=== PATIENT | female | born 1995 | race Two or more races ===

== ENCOUNTER 2017-07-29 12:40 | Emergency (ER) | payer OTHER ==
[2017-07-29 12:48] VITALS: BP 132/78; PULSE 74; TEMP 98.9; BMI 18.3
--- NOTE | 2017-07-29 12:59 | PDOC ---
History of Present Illness - General Chief Complaint: Back Pain Stated Complaint: RIGHT LOWER BACK PAIN Time Seen by Provider: 07/29/17 12:44 History Source: Patient Exam Limitations: No Limitations - History of Present Illness Initial Comments: 07/29/17 12:54 This patient is an otherwise healthy 21 yo F presenting to the ER with a complaint of lower back pain Pt states she had a gradual onset of right lower back pain which began yesterday No direct trauma to the back, no heavy lifting No fevers or chills No bowel or bladder incontinence No fevers or chills No dysuria, no flank pain per say no history of auto immune conditions No history of IVDU No history of cancer Pt tells me that she was told by her physician that she needs to see a gravity prospecting supervisor due to irregular periods She has not done so because she is not sexually active PMH: denies PSH: denies Meds: denies ALL: NKDA Social: denies alcohol, drug, cigarette use. Works as a biomedical equipment support specialist Family history: denies h/o auto immune disorders GENERAL/CONSTITUTIONAL: No: fever, chills, weakness, loss of appetite. HEAD, EYES, EARS, NOSE AND THROAT: No: change in vision, ear pain, discharge, sore throat, throat swelling. GENITOURINARY: No: dysuria, hematuria, frequency, urgency MUSCULOSKELETAL: Yes: right lower back pain No: neck pain, joint pain, muscle swelling or pain SKIN: No: lesions, GENERAL: The patient is in no acute distress. HEAD: Normal with no signs of trauma. EYES: PERRLA, EOMI, sclera anicteric, conjunctiva clear. ENT: Ears normal, nares patent, oropharynx clear without exudates. Moist mucous membranes. EXTREMITIES: Normal range of motion, no edema. NEUROLOGICAL: Cranial nerves II through XII grossly intact. Normal speech. No focal neurological deficits. MUSCULOSKELETAL: Back non-tender to palpation, no CVA tenderness No evidence of kyphosis No evidence of scoliosis Pt is/is not able to bend forward No Midline tenderness Right Paraspinal tenderness (+) straight leg raise (right side Motor: L4 - Kicking out L5 - dorsiflexing ankle and great toe, heel walking intact S1 - plantar flex, walking in toes intact Sensation: L4 - lateral thigh L5 - space between 1st and 2nd toe S1 - lateral aspect of foot SKIN: Warm, Dry, normal turgor, no rashes or lesions noted. 07/29/17 12:59 07/29/17 13:15 07/29/17 13:24 07/29/17 14:53 Past History - Past Medical History Allergies/Adverse Reactions: Allergies Allergy/AdvReac Type Severity Reaction Status Date / Time No Known Allergies Allergy Verified 07/29/17 12:42 Home Medications: Ambulatory Orders Cefpodoxime Proxetil [Vantin -] 100 mg PO BID #14 tablet 07/29/17 Ibuprofen 600 mg PO TID PRN #21 tablet 07/29/17 Ibuprofen [Advil -] 400 mg PO ASDIR PRN 07/29/17 Lidocaine 5% Patch [Lidoderm Patch -] 1 patch TP DAILY PRN #30 patch 07/29/17 Methocarbamol [Robaxin -] 500 mg PO TID PRN #21 tablet 07/29/17 Other medical history: VASOVAGAL SYNCOPE - Psycho/Social/Smoking Cessation Hx Anxiety: No Suicidal Ideation: No Smoking History: Never smoked Information on smoking cessation initiated: No Hx Alcohol Use: No Drug/Substance Use Hx: No *Physical Exam - Vital Signs Last Vital Signs Temp Pulse Resp BP Pulse Ox 98.9 F 74 18 132/78 99 07/29/17 12:40 07/29/17 12:40 07/29/17 12:40 07/29/17 12:40 07/29/17 12:40 Medical Decision Making - Medical Decision Making 07/29/17 12:58 iSTOPP checked, no narcotic use UA BHCG neg Pt concerned about stone Will do spiral CT 07/29/17 13:28 Laboratory Tests 07/29/17 12:58 Urine Appearance Cloudy Urine Blood Trace-intact H Ur Leukocyte Esterase 2+ H Urine RBC 0-3 Urine WBC 5-10 Ur Epithelial Cells Moderate Amorphous Urates Few Urine Bacteria Moderate 07/29/17 13:28 Toradol ordered 07/29/17 13:29 07/29/17 14:[address]: L5-S1 disc bulge Trace free fluid right side Pt state pain improved by not relieved Pt states she has to go back to work Can not stay for an abdominal ultrasound Will discharge to home We have discussed my concern about torsion She will follow up with gravity prospecting supervisor *DC/Admit/Observation/Transfer Diagnosis at time of Disposition: Back pain Qualifiers: Back pain location: low back pain Chronicity: acute Back pain laterality: right Sciatica presence: with sciatica Sciatica laterality: sciatica of right side Qualified Code(s): M54.41 - Lumbago with sciatica, right side - Discharge Dispostion Disposition: HOME Condition at time of disposition: Stable Admit: No - Prescriptions Prescriptions: Ibuprofen 600 mg PO TID PRN #21 tablet PRN Reason: Pain Lidocaine 5% Patch [Lidoderm Patch -] 1 patch TP DAILY PRN #30 patch PRN Reason: Pain Methocarbamol [Robaxin -] 500 mg PO TID PRN #21 tablet PRN Reason: Pain Cefpodoxime Proxetil [Vantin -] 100 mg PO BID #14 tablet - Referrals Referrals: Ariana Bates MD [Staff Physician] - - Patient Instructions Printed Discharge Instructions: DI for Low Back Pain, DI for Urinary Tract Infection (UTI) Additional Instructions: Coty Thank you for coming in to the ER Please monitor yourself for fevers or chills Please take antibiotics as prescribed Please take pain medications as prescribed You can use lidoderm patches to the area that is painful if needed, you don't need to get this if it is expensive Please return to the ER IMMEDIATELY for any other concerns or complaints Please follow up with gravity prospecting supervisor - Post Discharge Activity Work/School Note: Back to Work
[2017-07-29 13:21] LABS: PH,URINE 6.5 (4.5-8); URINE BILIRUBIN Negative (NEGATIVE); URINE BLOOD Trace-intact (NEGATIVE); URINE GLUCOSE (UA) Negative (NEGATIVE); URINE KETONE Negative (NEGATIVE); URINE NITRITE Negative (NEGATIVE); URINE PROTEIN Negative (NEGATIVE); URINE UROBILINOGEN 0.2 (0.2-1.0)
[2017-07-29 13:22] LABS: URINE APPEARANCE CLOUDY; URINE COLOR YELLOW; URINE LEUK ESTERASE 2+ (NEGATIVE)
[2017-07-29 13:23] LABS: URINE BACTERIA MODERATE /hpf (NEGATIVE); URINE RBC 0-3 /hpf (0-3)
[2017-07-29] MEDS ORDERED: KETOROLAC TROMETHAMINE 30 MG/1 ML VIAL ONE (13:24)
[2017-07-29] MEDS ORDERED: KETOROLAC TROMETHAMINE 30 MG/1 ML VIAL IM ONE (14:23)
== END 2017-07-29 15:02 | disposition home or self-care (01) ==
LOC: FER 12:40
PROC: 3E0233Z Introduction of Anti-inflammatory into Muscle, Percutaneous Approach (ICD-10-PCS; principal; 2017-07-29)
DX: M54.41 Lumbago with sciatica, right side (principal)
CPT/HCPCS: 74176; 81003; 81015; 84703; 87086; 96372; 99284-25

== ENCOUNTER 2019-03-17 12:50 | Emergency (ER) | payer OTHER ==
[2019-03-17 13:00] VITALS: BP 124/77; PULSE 93; TEMP 99.5; BMI 18.2
[2019-03-17] MEDS ORDERED: LORATADINE 10 MG TABLET PO ONE (13:11)
[2019-03-17] MEDS ORDERED: ACETAMINOPHEN 500 MG TABLET (FP) PO ONE (13:11)
[2019-03-17] MEDS ORDERED: DEXAMETHASONE 4 MG TABLET (FP) PO ONE (13:11)
--- NOTE | 2019-03-17 13:12 | PDOC ---
History of Present Illness - General Chief Complaint: Sore Throat Stated Complaint: SORE THROAT Time Seen by Provider: 03/17/19 12:52 - History of Present Illness Initial Comments: 03/17/19 13:15 23yo female with sore throat. Pt states sore throat x 2 weeks. Pt works at [employer]. States she was strep swabbed, flu swabbed, and mono tested yesterday at [facility] and it was all negative yesterday. Pt states sinus congestion and sore throat today. States pain with swallowing. Pt denies f/c. No cough. No albert. States she feels a lymph node on the right side. Pt denies abd pain. No n/v.d. No ear pain. No facial pain. States hx of seasonal allergies, took claritin for the first couple of days when the symptoms started and things seemed to improve , her watery eyes resolved so she stopped taking claritin. Pt denies all other complaints. Currently in a Master program for school. Pt denies albert. FROM of the cervical spine. No meningeal signs. Pmhx: denies allergies: seasonal, nkda Past History - Past Medical History Allergies/Adverse Reactions: Allergies Allergy/AdvReac Type Severity Reaction Status Date / Time No Known Allergies Allergy Verified 03/17/19 12:52 Home Medications: Ambulatory Orders Ibuprofen 600 mg PO TID PRN #21 tablet 07/29/17 Levonorgestrel-Ethin Estradiol [Larissia-28 Tablet] 1 each PO DAILY 03/17/19 COPD: No - Suicide/Smoking/Psychosocial Hx Smoking History: Never smoked Hx Alcohol Use: No Drug/Substance Use Hx: No Review of Systems - Review of Systems Able to Perform ROS?: Yes Is the patient limited Salvadorean proficient: No Constitutional: No: Chills, Fever HEENTM: Yes: Nose Congestion, Throat Pain, Difficulty Swallowing. No: Eye Pain , Blurred Vision Respiratory: No: Cough, Shortness of Breath Cardiac (ROS): No: Chest Pain, Irregular Heart Rate, Lightheadedness, Palpitations ABD/GI: No: Diarrhea, Nausea, Vomiting, Abdominal cramping : No: Burning, Dysuria Neurological: No: Headache, Numbness, Paresthesia All Other Systems: Reviewed and Negative *Physical Exam - Vital Signs Last Vital Signs Temp Pulse Resp BP Pulse Ox 99.5 F 93 H 16 124/77 100 03/17/19 12:51 03/17/19 12:51 03/17/19 12:51 03/17/19 12:51 03/17/19 12:51 - Physical Exam General Appearance: Yes: Nourished, Appropriately Dressed. No: Apparent Distress HEENT: positive: EOMI, ESTRELLA, Normal Voice, TMs Normal, Pharynx Normal, Nasal Congestion, Rhinorrhea. negative: Muffled/Hoarse voice, Pharyngeal Erythema, Tonsillar Exudate, Tonsillar Erythema, Sinus Tenderness, TM Erythema Neck: positive: Trachea midline, Normal Thyroid, Supple, Lymphadenopathy (R) ( anterior chain lymphadenopathy R ), Lymphadenopathy (L) (small L posterior chain lymphadenopathy) Respiratory/Chest: positive: Lungs Clear, Normal Breath Sounds. negative: Chest Tender, Respiratory Distress Cardiovascular: positive: Regular Rhythm, Regular Rate, S1, S2. negative: Edema Gastrointestinal/Abdominal: positive: Normal Bowel Sounds, Flat, Soft. negative : Tender, Guarding, Rebound, Tenderness Musculoskeletal: positive: Normal Inspection Extremity: positive: Normal Capillary Refill, Normal Inspection, Normal Range of Motion, Other (ambulatory in the ED) Integumentary: positive: Normal Color, Dry, Warm. negative: Rash Neurologic: positive: Fully Oriented, Alert, Normal Mood/Affect, Other (no focal neuro deficits, no meningeal signs) Medical Decision Making - Medical Decision Making 03/17/19 13:20 a/p: 23yo female with a sore throat -strep, flu, mono negative yesterday -no exudates or erythema -sinus congestion, recent seasonal allergies -sore throat with swallowing, but tolerating secretions, speaking in full sentences -no sores in the mouth -will give decadron, tylenol, claritin -will monitor and reassess 03/17/19 13:59 pt feeling much better FROM of the cervical spine no meningeal signs discussed all reasons to return to the ED and the need for follow up stable for dc to home *DC/Admit/Observation/Transfer Diagnosis at time of Disposition: Sore throat - Discharge Dispostion Disposition: HOME Condition at time of disposition: Stable Decision to Admit order: No - Referrals Referrals: Mor Carias MD [Staff Physician] - - Patient Instructions Printed Discharge Instructions: DI for Viral Pharyngitis Additional Instructions: Please drink plenty of fluids. Please take allergy medicine as discussed. Please follow up with the ENT if you symptoms persist. Please return to the ED for any further concerns or complaints. Please take tylenol or motrin as needed for pain. - Post Discharge Activity
[2019-03-17] MEDS ORDERED: ACETAMINOPHEN 500 MG TABLET (FP) ONE (13:16)
[2019-03-17] MEDS ORDERED: LORATADINE 10 MG TABLET ONE (13:16)
[2019-03-17] MEDS ORDERED: DEXAMETHASONE 4 MG TABLET (FP) ONE (13:16)
== END 2019-03-17 14:12 | disposition home or self-care (01) ==
LOC: FER 12:50
DX: J02.9 Acute pharyngitis, unspecified (principal); B97.89 Other viral agents as the cause of diseases classified elsewhere
CPT/HCPCS: 99281-25